=== PATIENT | female | born 1975 | race Caucasian/White ===

== ENCOUNTER → 2021-08-11 | Outpatient (CLI) | payer BC ==
[~2021-08-11] MED LIST: CITALOPRAM HBR20 MG PO; IBUPROFEN800 MG PO; NORETHINDRONE0.35 MG PO; PERCOCET 10-321 EACH PO; TYLENOL325 MG PO; ZYRTEC10 MG PO
[2021-08-11 13:35] LABS: HEMOGLOBIN 13.7 gm/dl (12.3-15.3); RED BLOOD COUNT 4.35 M/UL (4.00-5.10); WHITE BLOOD COUNT 8.7 K/UL (4.5-11.0)
== END ==
LOC: OPSV2 12:00
PROVIDERS: Obstetrics & Gynecology
DX: Z01.818 Encounter for other preprocedural examination (principal); D25.9 Leiomyoma of uterus, unspecified
CPT/HCPCS: 81001; 85025; 93005

== ENCOUNTER → 2021-08-19 | Day surgery (SDC) | payer BC | END | disposition home or self-care (01) | LOC: OR 05:26 | DX: N80.0 Endometriosis of uterus (principal); D25.9 Leiomyoma of uterus, unspecified; N72 Inflammatory disease of cervix uteri; N83.202 Unspecified ovarian cyst, left side; N83.201 Unspecified ovarian cyst, right side; N93.9 Abnormal uterine and vaginal bleeding, unspecified; F17.210 Nicotine dependence, cigarettes, uncomplicated; Z79.899 Other long term (current) drug therapy; Z88.1 Allergy status to other antibiotic agents; Z20.822 Contact with and (suspected) exposure to COVID-19 | CPT/HCPCS: 36415; 84702; C1769; J0690; J1100; J1170; J1885; J2001; J2250; J2270; J2405; J2550; J2704; J2710; J3010; J7120 ==

== ENCOUNTER 2022-02-13 02:41 | Emergency (ER) | payer BC ==
[2022-02-13] MEDS ORDERED: BENADRYL 50MG C50 MG PO (05:11)
[2022-02-13] MEDS ORDERED: PEPCID40 MG PO (05:11)
[2022-02-13] MEDS ORDERED: PREDNISONE 20 M20 MG PO (05:11)
== END 2022-02-13 05:06 | disposition home or self-care (01) ==
LOC: ER1 02:41
DX: L27.0 Generalized skin eruption due to drugs and medicaments taken internally (principal); T37.8X5A Adverse effect of other specified systemic anti-infectives and antiparasitics, initial encounter; T36.8X5A Adverse effect of other systemic antibiotics, initial encounter; T36.1X5A Adverse effect of cephalosporins and other beta-lactam antibiotics, initial encounter; Z88.5 Allergy status to narcotic agent; Z87.440 Personal history of urinary (tract) infections
CPT/HCPCS: 81001; 87086; 96374; 96375; 96376; 99283; J1200; J2930